=== PATIENT | male | born 1945 | race Caucasian/White ===

== ENCOUNTER 2021-10-09 14:11 | Emergency (ER) | payer MEDICARE, SELFPAY ==
[2021-10-09 14:13] VITALS: BP 96/63; PULSE 69; RESP 15; TEMP 36.4; O2SAT 97; BMI 43.2
[2021-10-09 14:25] VITALS: O2SAT 97
--- NOTE | 2021-10-09 14:43 | CT_ITS ---
STUDY: CT BRAIN WITHOUT CONTRAST REASON FOR EXAM: Male, 76 years old. Head injury. RADIATION DOSAGE (If Supplied By Facility): CTDIvol = ( 44.99 ) mGy, DLP = ( 812.98 ) mGycm TECHNIQUE: Transaxial CT imaging of the brain was performed without administration of intravenous contrast material. Individualized dose optimization techniques were used for this CT. COMPARISON: No relevant priors. FINDINGS: Normal soft tissue structures. Normal calvarium. Normal size ventricles and extra-axial spaces for the patient''s age. Normal white matter tracts of the cerebral hemispheres. Normal basal ganglia and thalami. Normal brainstem. Normal cerebellum. There is no intracranial hemorrhage. There are no findings of an acute ischemic infarction. Mucosal thickening of the left maxillary and ethmoid sinuses. Possible occlusion of the left ostiomeatal complex. CT/Brain/Head without Contrast IMPRESSION: 1. No acute intracranial process. 2. Sinus disease. Electronically Signed: Logan Ly MD at 15:41 EDT ,
--- NOTE | 2021-10-09 14:43 | EKG12_ITS ---
Test Reason : Blood Pressure : / mmHG Vent. Rate : 067 BPM Atrial Rate : 067 BPM P-R Int : 200 ms QRS Dur : 142 ms QT Int : 450 ms P-R-T Axes : 037 -66 069 degrees QTc Int : 475 ms Sinus rhythm with occasional Premature ventricular complexes Left axis deviation Non-specific intra-ventricular conduction block Minimal voltage criteria for LVH, may be normal variant ( [place] product ) Abnormal ECG Confirmed by KAMILA MENARD, GRADY ([id number]), pictures editor JUSTIN FONG ([id number]) on 10/11/2021 10:06:15 AM Referred By: SHERLEY Confirmed By:GRADY TREVIÑO MD
[2021-10-09 14:47] VITALS: O2SAT 96
[2021-10-09 15:02] LABS: Absolute Lymphocyte Count 1.32 X10^3/uL (0.83-4.51); Absolute Neutrophil Count 5.1 X10^3/uL (2.0-7.7); Basophil# 0.05 X10^3/uL; Basophil% 0.7 % (0-1); Eosinophil# 0.15 X10^3/uL; Eosinophils% 2.1 % (0-5); Hematocrit 38.2 % (40-54); Lymphocyte # 1.32 X10^3/ul (0.83-4.51); Lymphocyte % 18.1 % (19-41); Mean Corp Hgb Conc 31.4 g/dL (32-36); Mean Corpuscular Hgb 29.9 pg (27.0-32.0); Mean Corpuscular Volume 95.3 fL (80-94); Mean Platelet Vol. 11.9 fl (6.2-12.0); Monocyte% 8.2 % (0-10); NRBC Flagged by Analyzer 0 % (0-5); Neutrophil # 5.12 X10^3/uL (2.7-7.7); Neutrophil % 70.4 % (47-70); Platelet Count 220 K/mm3 (150-450); RBC Distribution Width CV 13.2 % (11.6-14.6); RBC Distribution Width SD 46.7 fl (35.1-43.9); Red Blood Count 4.01 M/mm3 (4.6-6.2); White Blood Count 7.3 K/mm3 (4.4-11.0)
[2021-10-09 15:17] LABS: D-Dimer Quantitative (DVT/PE) 0.37 FEU/ug/m (0.27-0.49)
--- NOTE | 2021-10-09 15:20 | RAD_ITS ---
STUDY: X-RAY CHEST REASON FOR EXAM: Male, 76 years old. Chest pain TECHNIQUE: Single AP portable view of the chest. COMPARISON: None. FINDINGS: Hypoventilatory changes in lung bases. No focal infiltrate is seen. There is no demonstrated pleural abnormality. Normal size heart. Normal mediastinum and jose. Normal visualized pulmonary arteries. Normal visualized aortic arch and descending thoracic aorta. No demonstrated acute osseous changes. There is no demonstrated abnormality of the visualized soft tissue structures of the upper abdomen. RAD/Chest 1 View (Portable) IMPRESSION: No active pulmonary disease. Electronically Signed: Logan Ly MD at 15:42 EDT ,
[2021-10-09 15:27] LABS: AST(SGOT) 12 U/L (15-37); Alanine Aminotransfer ALT/SGPT 16 U/L (16-61); Albumin, Serum 2.8 g/dL (3.2-5.0); Alkaline Phosphatase 68 U/L (45-117); Anion Gap 6 (5-15); BUN 21 mg/dL (7-18); BUN/Creat Ratio 18.4 RATIO (10-20); Bilirubin, Direct 0.08 mg/dL (0.00-0.30); Calcium,Total 7.9 mg/dL (8.5-10.1); Chloride 112 mmol/L (98-107); Creatinine, Serum 1.14 mg/dL (0.70-1.30); EST Glomerular Filtration Rate 66 mL/min (>60); Est Glom Filt Rate - Afr Amer 80 mL/min (>60); Estimated Creatinine Clearance 55.13 ml/min; Globulin 2.7 g/dL (2.2-4.2); Glucose 187 mg/dL (74-106); Lipase 62 U/L (73-393); Potassium 4.2 mmol/L (3.5-5.1); Protein, Total 5.5 g/dL (6.4-8.2); Sodium Level 142 mmol/L (136-145); Troponin-I HS (w/2H Reflex) 14 pg/mL (3.0-78.0)
[2021-10-09] MEDS: 0.9% Normal Saline 1,000 ML 150 ML IV (15:35)
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
[2021-10-09 16:18] VITALS: BP 107/68; PULSE 60; RESP 19; O2SAT 100
[2021-10-09 16:57] LABS: Reflex Troponin-HS? (from REC) Y
[2021-10-09 17:44] LABS: Troponin-I HS 13 pg/mL (3.0-78.0)
[2021-10-09 18:23] VITALS: BP 112/69; PULSE 59; RESP 17; O2SAT 98
[2021-10-09 18:57] VITALS: BP 127/72; PULSE 63; RESP 25; O2SAT 96
== END 2021-10-09 19:03 | disposition home or self-care (01) ==
PROVIDERS: Emergency Provider Emergency Medicine; Visit Provider Emergency Medicine
DX: R07.9 Chest pain, unspecified (principal); E11.40 Type 2 diabetes mellitus with diabetic neuropathy, unspecified; Z79.4 Long term (current) use of insulin; M54.9 Dorsalgia, unspecified; I25.10 Atherosclerotic heart disease of native coronary artery without angina pectoris; E78.00 Pure hypercholesterolemia, unspecified; I10 Essential (primary) hypertension; F17.220 Nicotine dependence, chewing tobacco, uncomplicated; Z79.82 Long term (current) use of aspirin; Z79.02 Long term (current) use of antithrombotics/antiplatelets; Z79.1 Long term (current) use of non-steroidal anti-inflammatories (NSAID); Z79.899 Other long term (current) drug therapy
CPT/HCPCS: 70450; 71045; 80048; 80076; 83690; 84484; 85025; 85379; 93005; 96360; 96361; 99285; J7040